=== PATIENT | male | born 1995 | race Caucasian/White ===

== ENCOUNTER 2022-12-28 00:59 | Emergency (ER) | payer MEDICAID ==
[~2022-12-28] VITALS: Ht 177.8 cm; Wt 99.0 kg
[2022-12-28 01:35] VITALS: BP 127/66
[2022-12-28] MEDS ORDERED: NALOXONE HCL 0.4 MG/ML 1ML VIAL IM ONE (01:45)
[2022-12-28] MEDS ORDERED: NALO4SPR BOTHNSTRLS (02:45)
== END 2022-12-28 05:38 | disposition home or self-care (01) ==
LOC: ER 01:11
DX: T50.901A Poisoning by unspecified drugs, medicaments and biological substances, accidental (unintentional), initial encounter (principal); G93.89 Other specified disorders of brain; Y92.89 Other specified places as the place of occurrence of the external cause
CPT/HCPCS: 96372; 99283; J2310; Z7610

== ENCOUNTER 2023-09-11 23:08 | Emergency (ER) | payer SELFPAY ==
[~2023-09-11] VITALS: Ht 167.6 cm; Wt 85.0 kg
[~2023-09-11 23:08] MED LIST: NALO4SPR BOTHNSTRLS
[2023-09-11 23:30] VITALS: BP 139/78; PULSE 115; RESP 20; TEMP 98.4; O2SAT 99
[2023-09-11] MEDS ORDERED: IBUPROFEN 600MG TABLET PO ONE (23:30)
[2023-09-11] MEDS ORDERED: LIDOCAINE 5% PATCH TOP ONE (23:30)
[2023-09-12] MEDS ORDERED: IBUP-2029 MT (05:17)
== END 2023-09-12 06:00 | disposition home or self-care (01) ==
LOC: ER 23:08
DX: R07.89 Other chest pain (principal); R05.9 Cough, unspecified
CPT/HCPCS: 71101; 99283